=== PATIENT | female | born 1995 | race African-American/Black ===

== ENCOUNTER 2020-05-02 05:47 | Outpatient (RCR) | payer OTHER ==
[~2020-05-02] VITALS: Ht 175.3 cm; Wt 68.1 kg
[2020-05-02] MEDS ORDERED: PANT40TA52 PO (11:15)
[2020-05-02] MEDS ORDERED: SUCR1TAB PO (11:15)
== END 2020-05-05 12:34 | disposition home or self-care (01) ==
LOC: PREOP 05:47
PROVIDERS: ATTEND Surgery
DX: Z01.818 Encounter for other preprocedural examination (principal)

== ENCOUNTER 2020-05-09 07:09 | Day surgery (SDC) | payer OTHER ==
[~2020-05-09] VITALS: Ht 175.3 cm; Wt 68.1 kg
[~2020-05-09 07:09] MED LIST: PANT40TA52 PO; SUCR1TAB PO
[2020-05-09] MEDS ORDERED: LACTATED RINGERS 1,000 ML IV ONE (07:15)
[2020-05-09] MEDS ORDERED: LACTATED RINGERS 1,000 ML IV STA (07:22)
[2020-05-09] MEDS ORDERED: PROPOFOL INJECTION 50 ML IV ONE ×2 (07:26→08:28)
[2020-05-09] MEDS ORDERED: MIDAZOLAM 2 MG/2 ML (VERSED) VIAL ONE ×2 (07:26→08:17)
[2020-05-09] MEDS ORDERED: HURRICAINE EXT TUBE (BENZOCAINE) XX PRN (07:30)
[2020-05-09 07:32] VITALS: BP 102/90
[2020-05-09] MEDS ORDERED: HURRICAINE EXT TUBE (BENZOCAINE) ONE (08:15)
--- NOTE | 2020-05-09 08:21 | Progress Note-Pre Operative ---
Pre-Operative Progress Note H&P Reviewed The H&P was reviewed, patient examined and no changes noted. Date Seen by Provider: May 09, 2020 Time Seen by Provider: 08:20 Date H&P Reviewed: May 09, 2020 Time H&P Reviewed: 08:20 Pre-Operative Diagnosis: chronic constipation, gerd, melena ANNE ESPINOSA DO May 09, 2020 08:21
[2020-05-09 09:10] VITALS: BP 94/61
--- NOTE | 2020-05-09 09:14 | Progress Note-Post Operative ---
Post-Operative Progess Note Surgeon (s)/Gas Line Repairer (s) Surgeon ANNE ESPINOSA DO Gas Line Repairer: na Pre-Operative Diagnosis chronic constipation, gerd, melena Post-Operative Diagnosis normal egd, colon polyps versus inflammatory bowel, posterior anal fissure Procedure & Operative Findings Date of Procedure 05/09/20 Procedure Performed/Findings egd c biopsies, colonoscopy c cold biopsies ileum, hot bx polypectomy x 6 and cold biopsies rectum x 3 Anesthesia Type per human resources administrator Estimated Blood Loss Estimated blood loss (mL): minimal Specimens/Packing Specimens Removed antrum, ge, ileum, colon polyps, rectal biopsies ANNE ESPINOSA DO May 09, 2020 09:14
[2020-05-09 09:15] VITALS: BP 104/63
--- NOTE | 2020-05-09 09:16 | Discharge Inst-Simple/Standard ---
Discharge Inst-Standard Patient Instructions/Follow Up Plan of Care/Instructions/FU: 2 weeks Dev Activity as Tolerated: Yes Discharge Diet: Regular Diet ANNE ESPINOSA DO May 09, 2020 09:16
[2020-05-09 09:20] VITALS: BP 100/68
[2020-05-09 09:55] VITALS: BP 107/77
[2020-05-09 10:20] VITALS: BP 107/77
--- NOTE | 2020-05-09 13:46 | OPERATIVE REPORT ---
DATE OF SERVICE: 05/09/2020 PREOPERATIVE DIAGNOSES: Chronic constipation, gastroesophageal reflux disease, melena. POSTOPERATIVE DIAGNOSES: Normal EGD, colon polyps versus inflammatory bowel changes, posterior anal fissure. PROCEDURE: EGD with biopsies, colonoscopy with cold biopsy of the ileum and hot biopsy polypectomy x6 and cold biopsy of the rectum x3. SURGEON: Gabriel Méndez DO ANESTHESIA: Per RESAW MACHINE OPERATOR. ESTIMATED BLOOD LOSS: Minimal. COMPLICATIONS: None. INDICATIONS: The patient is a 24-year-old female who has had longstanding bowel issues. She has been having chronic constipation, GERD and some melena. She understands risks and benefits of procedure and wished to proceed with procedure. Consent was signed in the chart. DESCRIPTION OF PROCEDURE: The patient was taken to the endoscopy suite, placed in left lateral recumbent position. Timeout was performed. Scope was inserted in mouth, down the esophagus, stomach and into the duodenum without difficulty. There were no polyps, masses or ulcerations within the duodenum. Scope was slowly retracted back into the stomach where it was further insufflated. No polyps, masses or ulcerations. Biopsy of the antrum was obtained. Scope was retroflexed noting no other pathology. Scope was returned to its normal position, slowly withdrawn to distal esophagus. Biopsy of the GE junction was obtained. Scope was then slowly retracted back until completely removed, noting no other pathology. Digital rectal exam was performed. A sentinel pile present. A small anal fissure very superficial present. No palpable polyps, masses or ulcerations. Scope was inserted in the rectum and advanced all the way to the cecum with minimal difficulty. Prep was adequate with irrigation and suction. Scope was then slowly retracted back. Scope was inserted through the ileocecal valve, the ileum was noted and had slightly thickened appearance of the mucosa. Cold biopsies were obtained. Scope retracted back into the stomach. The cecum had two small polyps, which hot biopsy polypectomy was performed. Scope was then continuously retracted back. No polyps, masses or ulcerations within the ascending or transverse colon. In the descending, two other small polyps were present, which hot biopsy polypectomy was performed. Scope was continuously retracted back to the sigmoid where two small polyps were present, which hot biopsy polypectomy was performed. Scope was then continuously retracted back into the rectum where multiple raised, slightly polyp appearing lesions were present with ulceration present within them. Three cold biopsies of these areas were obtained. Scope was retroflexed noting no other pathology. Scope was returned to its normal position, slowly withdrawn until completely removed. The patient tolerated procedure well without any complications. She was taken to recovery room in stable condition. RECOMMENDATIONS: The patient to continue on current medications. We will have her follow up on biopsies in the office. Any issues before that be seen at that time. Further repeat colonoscopy recommendations pending biopsy results. Job ID: [id number] DocumentID: [id number] Dictated Date: 05/09/2020 09:20:25 Engineering Mgr Date: 05/09/2020 13:45:29 Dictated By: DO DEVORAH SANCHEZ
--- NOTE | 2020-05-11 12:34 | Anesthesia-General Post-Op ---
MAC Significant Intra-Op Events Notes postop addendum for mac anesthesia on 05/09/20 at 0930 Patient Condition Mental Status/LOC: Same as Preop Cardiovascular: Satisfactory Nausea/Vomiting: Absent Respiratory: Satisfactory Pain: Controlled Complications: Absent Post Op Complications Complications None Follow Up Care/Instructions Patient Instructions None needed. Anesthesiology Discharge Order Discharge Order Patient is doing well, no complaints, stable vital signs, no apparent adverse anesthesia problems. No complications reported per nursing. CONNOR REINA GLASS CRUSHER May 11, 2020 12:34
== END 2020-05-09 10:20 | disposition home or self-care (01) ==
LOC: ENDO 07:09
PROVIDERS: ATTEND Surgery
DX: K92.1 Melena (principal); K21.00 Gastro-esophageal reflux disease with esophagitis, without bleeding; K60.2 Anal fissure, unspecified; K59.09 Other constipation; K21.9 Gastro-esophageal reflux disease without esophagitis; Z79.899 Other long term (current) drug therapy
CPT/HCPCS: 84703; 88305